=== PATIENT | female | born 1995 | race Two or more races ===

== ENCOUNTER 2019-10-14 12:38 | Emergency (ER) | payer MEDICAID ==
[~2019-10-14] VITALS: Ht 157.5 cm; Wt 68.0 kg
[2019-10-14 12:38] VITALS: BP 122/75
--- NOTE | 2019-10-14 12:38 | NUR ---
ED Nurse Note: Patient TRINIDAD TORRES from home c/o chest pain and SOB onset today. Per pt, she was tested positive for Covid on 10/12/19 at [place] after being seen for the same sx. Pt also report nausea/ vomiting, coughing and intermittent fever. Pt AAOX4, verbally responsive. Respirations even and unlabored, on room air. Covid isolation precaution observed. Pt placed on lunchroom monitor. ERMD at bedside.
[2019-10-14] MEDS ORDERED: Ketorolac 30mg Inj ONE (12:49)
--- NOTE | 2019-10-14 12:51 | NUR ---
ED Nurse Note: Blood specimen collected and sent to lab.
[2019-10-14] MEDS ORDERED: Ketorolac 30mg Inj IV ONE (13:00)
--- NOTE | 2019-10-14 13:03 | Emergency Room Report ---
History of Present Illness General Chief Complaint: Dyspnea/Respdistress Source: EMS Present Illness HPI Disclaimer: Please note that this report is being documented using DRAGON technology. This can lead to erroneous entry secondary to incorrect interpretation by the dictating instrument. HPI: 24-year-old female, COVID positive, presents for shortness of breath. She states she has been symptomatic for about 4 to 5 days. Had a coronavirus test done at [place] which returned +2 days ago. She reports cough chest pain and shortness of breath. Also reports vomiting after coughing. Intermittent fevers. Sick contacts with family. Pain is 8 out of 10 worse with coughing in the chest and nonradiating. 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 10/11 Patient History Reviewed Nursing Documentation: PMH: Agreed; PSxH: Agreed Nursing Documentation-PMH Past Medical History: No Stated History Review of Systems All Other Systems: negative except mentioned in HPI Physical Exam Vital Signs Date Time Temp Pulse Resp B/P (MAP) Pulse Ox O2 Delivery O2 Flow Rate FiO2 10/14/19 12:28 99.5 87 24 122/75 (91) 96 Room Air Sp02 EP Interpretation: reviewed, normal General Appearance: well appearing, no apparent distress Head: normocephalic, atraumatic Eyes: bilateral eye PERRL, bilateral eye EOMI ENT: hearing grossly normal, moist mucus membranes Neck: full range of motion, supple Respiratory: lungs clear, normal breath sounds, no retraction, no wheezing, other - Patient tachypneic Cardiovascular #1: normal peripheral pulses, regular rate, rhythm, no murmur Gastrointestinal: non tender, soft, non-distended, no guarding Neurologic: alert, oriented x3, no focal defects Skin: normal color, warm/dry Medical Decision Making ER Course MDM: Differential included COVID-19, pneumonia, anxiety, Clinical course-IV, IV fluids Zofran and pain control given. Laboratory studies showed no significant abnormalities. Patient's vital signs stable in the ER including not hypoxic not tachycardic and no respiratory distress. I suspect patient is having symptoms of COVID-19. She is positive. Will discharge home with continued Tylenol as needed Zofran as needed and antibiotic that was previously prescribed by [place]. She was given return precautions. Home isolation recommendations given. Labs - Laboratory Tests Test 10/14/19 12:45 White Blood Count 5.2 K/UL (4.8-10.8) Red Blood Count 4.99 M/UL (4.20-5.40) Hemoglobin 14.1 G/DL (12.0-16.0) Hematocrit 42.3 % (37.0-47.0) Mean Corpuscular Volume 85 FL (80-99) Mean Corpuscular Hemoglobin 28.2 PG (27.0-31.0) Mean Corpuscular Hemoglobin Concent 33.3 G/DL (32.0-36.0) Red Cell Distribution Width 11.6 % (11.6-14.8) Platelet Count 262 K/UL (150-450) Mean Platelet Volume 6.6 FL (6.5-10.1) Neutrophils (%) (Auto) 75.8 % (45.0-75.0) H Lymphocytes (%) (Auto) 18.2 % (20.0-45.0) L Monocytes (%) (Auto) 5.8 % (1.0-10.0) Eosinophils (%) (Auto) 0.1 % (0.0-3.0) Basophils (%) (Auto) 0.1 % (0.0-2.0) Sodium Level 141 MMOL/L (136-145) Potassium Level 3.7 MMOL/L (3.5-5.1) Chloride Level 107 MMOL/L (98-107) Carbon Dioxide Level 22 MMOL/L (21-32) Anion Gap 12 mmol/L (5-15) Blood Urea Nitrogen 11 mg/dL (7-18) Creatinine 0.8 MG/DL (0.55-1.30) Estimated Glomerular Filtration Rate > 60 mL/min (>60) Glucose Level 91 MG/DL (74-106) Calcium Level 8.8 MG/DL (8.5-10.1) Total Bilirubin 0.4 MG/DL (0.2-1.0) Aspartate Amino Transferase (AST) 42 U/L (15-37) H Alanine Aminotransferase (ALT) 90 U/L (12-78) H Alkaline Phosphatase 74 U/L (46-116) Troponin I 0.000 ng/mL (0.000-0.056) Total Protein 7.5 G/DL (6.4-8.2) Albumin 3.7 G/DL (3.4-5.0) Globulin 3.8 g/dL Albumin/Globulin Ratio 1.0 (1.0-2.7) On reevaluation: Patient in no acute distress and nontoxic-appearing Plan-discharge home on symptomatic treatment. Return precautions given. EKG Diagnostic Results Rate: normal Rhythm: NSR ST Segments: no acute changes Rhythm Strip Diag. Results EP Interpretation: yes Rate: 81 Rhythm: NSR, no PVC's, no ectopy Chest X-Ray Diagnostic Results Chest X-Ray Diagnostic Results : Chest X-Ray Ordered: Yes # of Views/Limited/Complete: 1 View Indication: Shortness of Breath Interpretation: other - No pneumothorax, no edema, patchy infiltrate noted Impression: Other - Patchy infiltrate noted Last Vital Signs Date Time Temp Pulse Resp B/P (MAP) Pulse Ox O2 Delivery O2 Flow Rate FiO2 10/14/19 12:28 99.5 87 24 122/75 (91) 96 Room Air Status: improved Disposition: HOME, SELF-CARE Condition: Stable Scripts Ondansetron (Zofran) 4 Mg Tablet 4 MG ORAL Q8H PRN for Nausea & Vomiting, #10 TAB 0 Refills Prov: Rowdy Orta M.D. 10/14/19 Rowdy Orta M.D. Oct 14, 2019 13:03
[2019-10-14 13:05] LABS: BASOPHILS % (AUTO) 0.1 % (0.0-2.0); EOSINOPHILS % (AUTO) 0.1 % (0.0-3.0); HEMATOCRIT 42.3 % (37.0-47.0); HEMOGLOBIN 14.1 G/DL (12.0-16.0); LYMPHOCYTES % (AUTO) 18.2 % (20.0-45.0); MEAN CORPUSCULAR VOLUME 85 FL (80-99); MONOCYTES % (AUTO) 5.8 % (1.0-10.0); NEUTROPHILS % (AUTO) 75.8 % (45.0-75.0); PLATELET COUNT 262 K/UL (150-450); RED BLOOD COUNT 4.99 M/UL (4.20-5.40); RED CELL DISTRIBUTION WIDTH 11.6 % (11.6-14.8); WHITE BLOOD COUNT 5.2 K/UL (4.8-10.8)
--- NOTE | 2019-10-14 13:05 | NUR ---
ED Nurse Note: Xray at bedside.
[2019-10-14 13:11] LABS: ANION GAP 12 mmol/L (5-15); BLOOD UREA NITROGEN 11 mg/dL (7-18); CALCIUM 8.8 MG/DL (8.5-10.1); CARBON DIOXIDE 22 MMOL/L (21-32); CHLORIDE 107 MMOL/L (98-107); CREATININE 0.8 MG/DL (0.55-1.30); POTASSIUM 3.7 MMOL/L (3.5-5.1); SODIUM 141 MMOL/L (136-145)
[2019-10-14 13:16] LABS: ALANINE AMINOTRANSFERASE 90 U/L (12-78); ALBUMIN 3.7 G/DL (3.4-5.0); ALKALINE PHOSPHATASE 74 U/L (46-116); ASPARTATE AMINO TRANSFERASE 42 U/L (15-37); BILIRUBIN,TOTAL 0.4 MG/DL (0.2-1.0)
[2019-10-14] MEDS ORDERED: ZOFRAN4 MG ORAL ×2 (14:04→14:06)
[2019-10-14 14:15] VITALS: BP 115/76
--- NOTE | 2019-10-14 14:15 | NUR ---
ED Nurse Note: Pt cleared by ERMD for discharge. DC and covid home instructions/prescription was given and explained to pt and verbalized understanding of teachings. All medical deviecs such as ID band and IV line removed. Pt is AAO x4, ambulatory and left with all personal belongings. P/ u by .
--- NOTE | 2019-10-14 14:28 | Diagnostic Imaging Report ---
Indication: Shortness of breath Technique: One view of the chest Comparison: none Findings: There is a left midlung and right perihilar infiltrate. The pleural spaces are clear. The heart size is normal. Impression: Bilateral infiltrates, likely pneumonia
== END 2019-10-14 14:15 | disposition home or self-care (01) ==
LOC: EDBD 12:38 → EMR 13:11
DX: U07.1 COVID-19 (principal); R11.10 Vomiting, unspecified; R07.9 Chest pain, unspecified; R06.02 Shortness of breath; R00.0 Tachycardia, unspecified
CPT/HCPCS: 36415; 71045; 80053; 84484; 85025; 87040; 93005; 96361; 96374; 96375; J1885; J2405; J7030; Z7502; 99284